=== PATIENT | female | born 1945 | race Caucasian/White ===

== ENCOUNTER 2017-03-10 20:41 | Emergency (ER) | payer OTHER, MEDICAID ==
[~2017-03-10] VITALS: Ht 167.6 cm; Wt 76.2 kg
--- NOTE | 2017-03-10 20:51 | NUR ---
PT BIB [facility] AND [employer] HERE FOR MEDICAL CLEARANCE FOR GPS ADMISSION. PT DENIES SI/HI OR ANY MEDICAL SX'S. PT NOTED WITH PARANOID THOUGHTS THAT "SHE'S BEING KIDNAPPED" PT AOX2 AT THIS TIME. RR EVEN AND UNLABORED. NO SOB NOTED. NAD NOTED. NO NDV AT THIS TIME. PT NOT DIAPHROETIC. PT PLACED ON MONITOR WAITING FOR MD LEIGH.
--- NOTE | 2017-03-10 20:52 | NUR ---
URINE COLLECTED. CALLED LAB FOR CARDIOLOGY CONSULTANT.
--- NOTE | 2017-03-10 21:03 | NUR ---
LAB AT BEDSIDE FOR BLOOD DRAW.
[2017-03-10 21:07] LABS: BASOPHILS % (AUTO) 0.5 % (0.0-2.0); EOSINOPHILS # (AUTO) 0.1 /CMM (0.0-0.7); EOSINOPHILS % (AUTO) 0.8 % (0.0-6.0); HEMATOCRIT 40 % (33-45); HEMOGLOBIN 13.1 g/dL (11.5-14.8); LYMPHOCYTES # (AUTO) 1.2 /CMM (0.8-4.8); LYMPHOCYTES % (AUTO) 13.8 % (20.0-44.0); MEAN CORPUSCULAR HEMOGLOBIN 28 PG (26.0-33.0); MEAN CORPUSCULAR HGB CONC 33 g/dl (31.0-36.0); MEAN CORPUSCULAR VOLUME 84 fL (82-100); MONOCYTES # (AUTO) 0.4 /CMM (0.1-1.30); MONOCYTES % (AUTO) 4.2 % (2.0-12.0); NEUTROPHILS # (AUTO) 6.7 /CMM (1.8-8.9); NEUTROPHILS % (AUTO) 80.7 % (43.0-81.0); PLATELET COUNT (AUTO) 185 /CMM (150-450); RDW COEFFICIENT OF VARIATION 13.6 (11.5-15.0); RED BLOOD CELL COUNT(AUTO) 4.69 MIL/uL (4.0-5.2); WHITE BLOOD COUNT (AUTO) 8.4 K/uL (4.3-11.0)
[2017-03-10] MEDS ORDERED: ASPI81TA2 PO (21:09)
[2017-03-10] MEDS ORDERED: ASCO500T8 PO (21:10)
[2017-03-10] MEDS ORDERED: CRAN425C PO (21:10)
[2017-03-10] MEDS ORDERED: ACET-868 PO (21:10)
[2017-03-10] MEDS ORDERED: SIMV10TA6 PO (21:10)
[2017-03-10] MEDS ORDERED: QUET100T PO (21:10)
[2017-03-10] MEDS ORDERED: FAMO20TA8 PO (21:10)
[2017-03-10 21:14] LABS: APPEARANCE,URINE Clear (CLEAR); BILIRUBIN,URINE Negative (NEGATIVE); BLOOD, URINE Negative Ery/uL (NEGATIVE); COLOR,URINE Yellow (YELLOW); KETONES,URINE Negative (NEGATIVE); LEUKOCYTE ESTERASE ,URINE Moderate (NEGATIVE); NITRITE, URINE Positive (NEGATIVE); PROTEIN,URINE Negative (NEGATIVE); UGLUCOSE Negative (NEGATIVE); UROBILINOGEN,URINE 0.2 EU/dL (0.2)
[2017-03-10 21:19] LABS: CALCIUM, SERUM 8.7 mg/dL (8.5-10.1); CARBON DIOXIDE 26 mmol/L (21-32); CHLORIDE 109 mmol/L (98-107); GLUCOSE 138 mg/dL (74-106); POTASSIUM 3.9 mmol/L (3.5-5.1); SODIUM SERUM 146 mmol/L (136-145); UREA NITROGEN, BLOOD 22 mg/dL (7-18)
[2017-03-10 21:27] LABS: BACTERIA,URINE Many /HPF (None Seen); RBC,URINE 0-2 /HPF (0-2)
[2017-03-10 21:28] LABS: SQUAMOUS EPITHELIAL CELL,UR Rare /HPF (None Seen)
[2017-03-10 21:34] LABS: ACETAMINOPHEN < 10 ug/ml (10-30); ALANINE AMINOTRANSFERASE 22 U/L (12-78); ALCOHOL, BLOOD < 3 mg/dL (0-0); ALKALINE PHOSPHATASE 92 U/L (46-116); ASPARTATE AMINOTRANSFERASE 18 U/L (15-37); BILIRUBIN,DIRECT 0.1 mg/dL (0.0-0.2); BILIRUBIN,TOTAL 0.3 mg/dL (0.2-1.0); SALICYLATE 1.1 mg/dL (2.8-20.0)
[2017-03-10] MEDS ORDERED: CIPROFLOXACIN HCL 500 MG TABLET ONE (21:51)
[2017-03-10] MEDS ORDERED: CIPROFLOXACIN HCL 250 MG TABLET PO ONE (22:00)
--- NOTE | 2017-03-10 22:22 | NUR ---
CALLED SILK SCREENER BILL HE SAID HE WOULD COME.
--- NOTE | 2017-03-10 23:08 | NUR ---
[facility], EXPECTING A CALL BACK FROM A [facility] DOCTOR.
--- NOTE | 2017-03-10 23:40 | NUR ---
PER BILL, ANNELIESE LEIGH, PT PLACED ON 5150 HOLD.
--- NOTE | 2017-03-11 00:58 | NUR ---
TRANSFER INFO: TO [phone]; [facility] ACCEPTING; ETA [id number].
--- NOTE | 2017-03-11 01:45 | NUR ---
REPORT GIVEN TO EMT, [facility]. PT AWARE OF TRANSFER, PT WITH ALL BELONGINGS. PT TRANSFERED VIA GURNEY. PER [facility] TOOK OVER CARE.
--- NOTE | 2017-03-11 01:52 | NUR ---
REPORT GIVEN TO KI VEE FOR CONTINUE OF CARE.
[2017-03-11 01:59] VITALS: BP 138/80
== END 2017-03-11 02:01 ==
LOC: ER 20:43
DX: F29 Unspecified psychosis not due to a substance or known physiological condition (principal); E78.5 Hyperlipidemia, unspecified; F03.90 Unspecified dementia, unspecified severity, without behavioral disturbance, psychotic disturbance, mood disturbance, and anxiety; I25.10 Atherosclerotic heart disease of native coronary artery without angina pectoris; K21.9 Gastro-esophageal reflux disease without esophagitis; N30.90 Cystitis, unspecified without hematuria; Z79.82 Long term (current) use of aspirin; Z88.8 Allergy status to other drugs, medicaments and biological substances
CPT/HCPCS: 36415; 80048-TC; 80076-TC; 80305; 81000-TC; 85025-TC; 87086-TC; 87186-TC; A4606; G0480; Z7610